=== PATIENT | male | born 1955 | race Caucasian/White ===

== ENCOUNTER 2019-06-19 08:47 | Emergency (ER) | payer SELFPAY ==
[~2019-06-19] VITALS: Ht 185.4 cm; Wt 83.9 kg
[2019-06-19 08:50] VITALS: BP_SYST 193
--- NOTE | 2019-06-19 08:50 | NUR ---
Patient to ER bed [facility] for evaluation. Side rails up. Report given to NATY Eugene & NATY Singh. Addendum: 06/19/19 at 0937 by HAVEN EKG performed at by Francisco ALFONSO. Physician given copy of EKG for review.
--- NOTE | 2019-06-19 09:00 | NUR ---
Pt came in c/o L abd pain 01/05 after lifting heavy object at work. No other complaint at this time, pt has no s/s of distress.
--- NOTE | 2019-06-19 09:05 | NUR ---
ER at bedside examining patient.
--- NOTE | 2019-06-19 09:05 | NUR ---
ER Dr. Sheets at bedside examining patient.
--- NOTE | 2019-06-19 09:05 | NUR ---
Yvette bender in ED - 06/19/19 at 0941 by SDNURGD LONDON Jean at bedside examining patient.
[2019-06-19] MEDS ORDERED: MORPHINE 4 MG/ML INJ. SYRINGE IVP ONE (09:15)
[2019-06-19] MEDS ORDERED: ONDANSETRON HCL 4 MG/2 ML VIAL IVP ONE (09:15)
--- NOTE | 2019-06-19 09:26 | NUR ---
20 gauge angiocath placed to L AC. Use of asceptic technique. Opsite placed over site. Blood return noted. Blood for lab drawn from site. Flushed with 10 cc of normal saline. No evidence of infiltration noted. Patient tolerated well.
--- NOTE | 2019-06-19 09:34 | NUR ---
Patient transported to radiology via gurney, accompanied by graduate rn.
--- NOTE | 2019-06-19 09:52 | NUR ---
pt returned from x-ray
[2019-06-19 10:13] LABS: BASOPHILS % (AUTO) 0.1 % (0.0-2.0); HEMOGLOBIN 15.5 g/dL (14.0-18.0); LYMPHOCYTES # (AUTO) 0.6 K/uL (1.0-5.5); LYMPHOCYTES % (AUTO) 3.7 % (20.5-51.5); MEAN CORPUSCULAR HEMOGLOBIN 32 pg (27-31); MEAN CORPUSCULAR HGB CONC 35 % (32-36); MEAN CORPUSCULAR VOLUME 90 fL (79.0-98.0); MONOCYTES # (AUTO) 0.9 K/uL (0.0-1.0); MONOCYTES % (AUTO) 5.8 % (1.7-9.3); NEUTROPHILS # (AUTO) 13.9 K/uL (1.8-7.7); NEUTROPHILS % (AUTO) 90.4 % (40.0-70.0); PLATELET COUNT (AUTO) 259 K/uL (130-430); RED BLOOD CELL COUNT(AUTO) 4.88 MIL/uL (4.2-6.2); RED CELL DISTRIBUTION WIDTH 12.8 % (9.0-15.0); WHITE BLOOD COUNT (AUTO) 15.4 K/uL (4.8-10.8)
[2019-06-19 10:18] LABS: PROTHROMBIN TIME 10.3 SECS (9.5-12.5)
[2019-06-19 10:29] LABS: CALCIUM 7.8 mg/dL (8.4-11.0); CREATININE 1.52 mg/dL (0.55-1.30); POTASSIUM 3.8 mmol/L (3.5-5.1)
[2019-06-19 10:30] LABS: BILIRUBIN,URINE NEGATIVE (NEGATIVE); CLARITY/URINE CLEAR (CLEAR); COLOR,URINE YELLOW (YELLOW); GLUCOSE,URINE NEGATIVE (NEGATIVE); KETONES,URINE 1+ (NEGATIVE); LEUKOCYTE ESTERASE ,URINE NEGATIVE (NEGATIVE); NITRITE, URINE NEGATIVE (NEGATIVE); PH,URINE 7.5 (5.0-8.0); PROTEIN URINE TRACE (NEGATIVE); UROBILINOGEN,URINE 0.2 (0.2-1.0)
[2019-06-19 10:33] LABS: ALBUMIN 3.9 g/dL (3.4-4.8); TOTAL BILIRUBIN 1.1 mg/dL (0.0-1.0)
[2019-06-19 11:28] LABS: BLOOD, URINE TRACE (NEGATIVE)
[2019-06-19] MEDS ORDERED: cloNIDine HCL 0.1 MG TABLET PO ONE (11:30)
[2019-06-19 11:34] LABS: BACTERIA,URINE None Seen /HPF (None Seen); RBC,URINE 0-3 /HPF (0-3); WBC,URINE 0-3 /HPF (0-3)
--- NOTE | 2019-06-19 12:20 | NUR ---
pt reports feeling better. Abd pain is 4/10.
[2019-06-19] MEDS ORDERED: cefTRIAXone 1 GM IVPB PREMIX 50 ML IV ONE (12:45)
--- NOTE | 2019-06-19 13:00 | NUR ---
Rocephin administered to pt
[2019-06-19 14:06] VITALS: BP_SYST 167
--- NOTE | 2019-06-19 14:08 | NUR ---
Patient given written and verbal discharge instructions and verbalizes understanding. ER MD discussed with patient the results and treatment provided. Patient in stable condition. ID arm band removed. IV catheter removed intact and dressing applied, no active bleeding. Rx of Tramadol, Keflex given. Patient educated on pain management and to follow up with PMD. Pain Scale 0. Opportunity for questions provided and answered. Medication side effect fact sheet provided.
== END 2019-06-19 14:06 | disposition home or self-care (01) ==
LOC: SED 08:47
DX: N20.0 Calculus of kidney (principal); N13.30 Unspecified hydronephrosis; R10.12 Left upper quadrant pain
CPT/HCPCS: 36415; 71045; 74176; 80053; 81000; 82150; 82550; 83605; 83690; 84484; 85025; 85610; 85730; 87040; 93005; 96365; 96375; 99284; J0696; J2270; J2405